=== PATIENT | male | born 1955 | race African-American/Black ===

== ENCOUNTER 2016-06-10 20:00 | Inpatient (IN) | payer BC, OTHER ==
[~2016-06-10] VITALS: Ht 193 cm; Wt 113.4 kg
[2016-06-10 20:36] LABS: Basophils # (auto) 0 uL; Basophils % (auto) 0.7 % (0.0-2.0); Eosinophils # (auto) 0.1 uL; Eosinophils % (auto) 1.3 % (0.0-7.0); Hematocrit 51.2 % (41.0-53.0); Hemoglobin 17.1 g/dL (13.5-17.5); Lymphocytes # (auto) 2.9 uL; Lymphocytes % (auto) 48.9 % (10.0-50.0); Mean Corpuscular Hemoglobin 31.7 pg (28.0-32.0); Mean Corpuscular Hgb Conc. 33.4 g/dL (32.0-36.0); Mean Corpuscular Volume 94.8 fL (80.0-100.0); Mean Platelet Volume 8.4 fL (7.4-10.4); Monocytes # (auto) 0.7 uL; Monocytes % (auto) 12.2 % (0.0-12.0); Neutrophils # (auto) 2.2 uL; Neutrophils % (auto) 36.9 % (37.0-80.0); Platelet Count (auto) 254 10^3/uL (140-450); Red Cell Distribution Width 12.9 % (11.6-16.0); White Blood Cell 5.9 10^3/uL (4.4-10.8)
[2016-06-10 20:55] LABS: Albumin 3.7 g/dL (3.4-5.0); Alkaline Phosphatase 90 U/L (45-117); Anion Gap 9 (5-15); Aspartate Aminotransferase 30 U/L (15-37); BUN/Creatinine Ratio 7.7; Bilirubin, Total 0.6 mg/dL (0.2-1.0); Blood Urea Nitrogen 12 mg/dL (7-18); Calcium 8.8 mg/dL (8.5-10.1); Carbon Dioxide 25 mmol/L (21-32); Chloride 104 mmol/L (98-107); GFR African American 60 mL/min; GFR Non-African American 49 mL/min; Glucose 88 mg/dL (74-106); Magnesium 2.1 mg/dL (1.6-2.6); Potassium 3.9 mmol/L (3.5-5.1); Sodium 138 mmol/L (136-145); Total Protein 8.7 g/dL (6.4-8.2)
[2016-06-10] MEDS ORDERED: METO-158 PO (21:45)
[2016-06-10] MEDS ORDERED: MELO-86 PO (21:46)
[2016-06-10] MEDS ORDERED: ASPirin 81 mg TAB PO ONE (22:00)
[2016-06-10] MEDS ORDERED: PANTOPRAZOLE SODIUM 40 MG/10 ML VIAL IV ONE (22:00)
[2016-06-10 22:21] LABS: INR 1.06 (0.9-1.15); Partial Thromboplastin Time 28.5 sec (22.64-33.71); Prothrombin Time 11.4 sec (9.37-12.3)
[2016-06-10 22:39] LABS: B-Type Natriuretic Peptide 1.71 pg/mL (0-100)
[2016-06-10 22:46] LABS: Temperature: 23.4 C (20.0-25.0)
[2016-06-10] MEDS ORDERED: ONDANSETRON HCL 4 MG/2 ML VIAL IV PRN (23:30)
[2016-06-10] MEDS ORDERED: LABETALOL HCL 5 MG/ML 4ML SYRINGE IV PRN (23:30)
[2016-06-10] MEDS ORDERED: MORPHINE SULF INJ 2 MG/ML SYRINGE 1ML IV PRN (23:30)
[2016-06-10] MEDS ORDERED: NITROGLYCERIN 0.4 MG SL TAB SL PRN (23:30)
[2016-06-10 23:33] LABS: Urine RBC None Seen /hpf (0 - 3)
[2016-06-10 23:51] LABS: Urine Bilirubin Negative (Negative); Urine Blood Negative /uL (Negative); Urine Color Yellow (Yellow); Urine Glucose Normal (Normal); Urine Ketone Negative (Negative); Urine Nitrite Negative (Negative); Urine Urobilinogen Normal (Negative)
[2016-06-11] VITALS (8 sets, daily range): BP systolic 125–148; BP diastolic 84–108
[2016-06-11] MEDS: HYDROcodone-ACET 5/325MG TAB PO PRN (01:05)
[2016-06-11 06:25] LABS: Anion Gap 10 (5-15); BUN/Creatinine Ratio 8.7; Blood Urea Nitrogen 12 mg/dL (7-18); Calcium 8.7 mg/dL (8.5-10.1); Carbon Dioxide 27 mmol/L (21-32); Chloride 104 mmol/L (98-107); Cholesterol 153 mg/dL (< 200); GFR African American 68 mL/min; GFR Non-African American 56 mL/min; Glucose 83 mg/dL (74-106); HDL Cholesterol 33 mg/dL (40-59); LDL Cholesterol 115 mg/dL (< 100); Sodium 141 mmol/L (136-145); Triglycerides 84 mg/dL (< 150)
[2016-06-11] MEDS: ASPirin 81 mg TAB PO SCH (10:12)
[2016-06-11] MEDS: PANTOPRAZOLE 40 MG TAB PO SCH (10:13)
[2016-06-11] MEDS: METOPROLOL TARTRATE 50 MG TAB PO SCH ×2 (10:13→21:50)
[2016-06-11] MEDS ORDERED: ATORVASTATIN 20 MG TAB PO SCH (22:00)
[2016-06-12] MEDS: HYDROcodone-ACET 5/325MG TAB PO PRN ×2 (00:19→06:33)
[2016-06-12 04:54] VITALS: BP 137/91
[2016-06-12 07:19] LABS: Potassium 4.1 mmol/L (3.5-5.1)
[2016-06-12 07:21] LABS: BUN/Creatinine Ratio 10.3
[2016-06-12 09:02] VITALS: BP 139/88
[2016-06-12] MEDS: ASPirin 81 mg TAB PO SCH (09:23)
[2016-06-12] MEDS: PANTOPRAZOLE 40 MG TAB PO SCH (09:23)
[2016-06-12] MEDS: METOPROLOL TARTRATE 50 MG TAB PO SCH (09:24)
[2016-06-12 12:34] VITALS: BP 139/88
[2016-06-12 13:00] VITALS: BP 130/87
== END 2016-06-12 14:00 | disposition home or self-care (01) | DRG 311 ==
LOC: ER 20:02 → TELE-WESTW 20:03
PROVIDERS: ADMIT Internal Medicine; ATTEND Internal Medicine
DX: I20.0 Unstable angina (principal); E66.9 Obesity, unspecified; I12.9 Hypertensive chronic kidney disease with stage 1 through stage 4 chronic kidney disease, or unspecified chronic kidney disease; N18.3 Chronic kidney disease, stage 3 (moderate); Z81.1 Family history of alcohol abuse and dependence; Z82.49 Family history of ischemic heart disease and other diseases of the circulatory system; Z83.3 Family history of diabetes mellitus; Z87.891 Personal history of nicotine dependence; Z91.041 Radiographic dye allergy status; M19.90 Unspecified osteoarthritis, unspecified site
CPT/HCPCS: 36415; 71010; 78452; 80048; 80053; 80061; 81001; 83735; 83880; 84443; 84484; 85025; 85379; 85610; 85730; 93017; 93306; 94761; 96374; C9113

== ENCOUNTER 2019-06-12 01:34 | Inpatient (IN) | payer BC, MEDICAID ==
[~2019-06-12] VITALS: Ht 185.4 cm; Wt 83.3 kg
[~2019-06-12 01:34] MED LIST: MELO1TAB56 PO; METO-158 PO
[2019-06-12 02:44] LABS: Basophils # (auto) 0 10 ^3/uL (0-0.2); Basophils % (auto) 0.3 % (0.0-2.0); Eosinophils # (auto) 0.1 10 ^3/uL (0-0.8); Eosinophils % (auto) 1.1 % (0.0-7.0); Hematocrit 46.2 % (41.0-53.0); Lymphocytes % (auto) 35.5 % (10.0-50.0); Mean Corpuscular Hemoglobin 32.3 pg (28.0-32.0); Mean Corpuscular Hgb Conc. 34.6 g/dL (32.0-36.0); Mean Corpuscular Volume 93.5 fL (80.0-100.0); Monocytes # (auto) 0.7 10 ^3/uL (0-1.3); Monocytes % (auto) 11.9 % (0.0-12.0); Neutrophils # (auto) 2.8 10 ^3/uL (1.6-8.6); Neutrophils % (auto) 51.2 % (37.0-80.0); Nucleated Red Blood Cells % 0.3 %; Platelet Count (auto) 238 10^3/uL (140-450); Red Blood Cells 4.94 10^6/uL (4.5-5.90); Red Cell Distribution Width 12.9 % (11.8-14.3); White Blood Cell 5.5 10^3/uL (4.4-10.8)
[2019-06-12 03:15] LABS: Albumin 3.3 g/dL (3.4-5.0); Anion Gap 4 (5-15); Blood Urea Nitrogen 14 mg/dL (7-18); Calcium 8.4 mg/dL (8.5-10.1); Carbon Dioxide 30 mmol/L (21-32); Chloride 103 mmol/L (98-107); Glucose 138 mg/dL (74-106); INR 1.12 (0.9-1.15); Potassium 3.4 mmol/L (3.5-5.1); Sodium 137 mmol/L (136-145)
[2019-06-12 03:22] LABS: Alanine Aminotransferase 51 U/L (16-61); Alkaline Phosphatase 106 U/L (45-117); Aspartate Aminotransferase 42 U/L (15-37); BUN/Creatinine Ratio 9.7; Bilirubin, Total 0.4 mg/dL (0.2-1.0); GFR African American 64 mL/min; GFR Non-African American 53 mL/min; Total Protein 7.9 g/dL (6.4-8.2)
[2019-06-12] MEDS ORDERED: MORPHINE SULF INJ 2 MG/ML SYRINGE 1ML IV PRN (04:15)
[2019-06-12] MEDS ORDERED: NITROGLYCERIN 0.4 MG SL TAB SL PRN ×2 (04:15)
[2019-06-12] MEDS ORDERED: ACETAMINOPHEN 325 MG TAB PO PRN (04:15)
[2019-06-12] MEDS ORDERED: ONDANSETRON HCL 4 MG/2 ML VIAL IV PRN (04:15)
[2019-06-12] MEDS ORDERED: MORPHINE SULFATE 4 MG/ML SYR/VIAL IV PRN (04:15)
--- NOTE | 2019-06-12 08:20 | NUR ---
Telemetry admit from ER JODY VALENZUELA admitted to Telemetry unit after SBAR received. Patient oriented to BRISEIDA SHAW, RN primary RN, unit, room, bed, and unit policies regarding patient care and visiting hours. Patient now on continuous telemetry monitoring, tele box # 18 and telemetry reading on arrival to unit is SR IN 60'S. Patient weighed by bed scale and encouraged to call if they need something. All questions and concerns addressed, patient verbalized understanding.
[2019-06-12 09:00] VITALS: BP 118/80
[2019-06-12 10:00] VITALS: BP 118/80
[2019-06-12] MEDS ORDERED: LOSARTAN POTASSIUM 25 MG TAB PO SCH (10:00)
[2019-06-12] MEDS ORDERED: CLOPIDOGREL BISULFATE 75 MG TAB PO SCH (10:00)
[2019-06-12] MEDS ORDERED: CARVEDILOL 3.125 MG TAB PO SCH (10:00)
[2019-06-12] MEDS: ASPirin 81 mg TAB PO SCH (10:19)
[2019-06-12] MEDS: DOCUSATE SOD 100 MG CAP PO SCH (10:19)
[2019-06-12] MEDS ORDERED: POTASSIUM CHL 20 Meq TABLET PO ONE (12:00)
[2019-06-12] MEDS ORDERED: PANTOPRAZOLE 40 MG TAB PO ONE (12:00)
[2019-06-12 13:00] VITALS: BP 114/80
[2019-06-12] MEDS: SODIUM CHLORIDE 0.9% 1,000 ML IV SCH (13:42)
[2019-06-12 16:50] VITALS: BP 96/61
[2019-06-12] MEDS ORDERED: CHLO25TA22 PO (17:36)
[2019-06-12] MEDS ORDERED: AMLO5TAB15 PO (17:36)
--- NOTE | 2019-06-12 19:45 | NUR ---
RECEIVED PATIENT FROM DAY SHIFT RN. PATIENT RESTING IN BED. NO S/S OF DISTRESS NOTED. C/O PAIN @ 8/10 ON HIS LEFT KNEE AND BACK, PATIENT REFUSED TO TAKE MEDICATION FOR NOW, INSTRUCTED PATIENT THE SCHEDULE OF PAIN MANAGEMENT, AND ENCOURAGED PATIENT TO ASK FOR PAIN MEDICATION IF HE COULD NOT TOLERATE THE PAIN. PATIENT VERBALIZED UNDERSTANDING. POC INSTRUCTED AND ENCOURAGED PATIENT TO CALL FOR FEDERAL MEDIATOR IF NEEDED. BED IN LOWEST POSITION WITH SIDE RAILS UP X 2. CALL [facility] WITHIN REACH. ALARM ON. CONTINUE TO MONITOR FOR CHANGES Q1H AND PRN.
--- NOTE | 2019-06-12 20:19 | NUR ---
URINE SAMPLE COLLECTED AND SENT. CONTINUE TO MONITOR.
[2019-06-12 20:26] LABS: Urine Bacteria NONE SEEN /hpf (None Seen); Urine Blood Negative /uL (Negative); Urine WBC 1 /hpf (0 - 3)
[2019-06-12] MEDS ORDERED: ATORVASTATIN 20 MG TAB PO SCH (22:00)
[2019-06-12 22:17] VITALS: BP 103/61
--- NOTE | 2019-06-12 22:30 | NUR ---
PATIENT REQUESTED SLEEPING PILL EARLIER, HOSPITALIST CALLED BACK AND ORDER RECEIVED. CONTINUE TO MONITOR.
[2019-06-12] MEDS ORDERED: TEMAZEPAM 15 MG CAP PO ONE (22:45)
--- NOTE | 2019-06-12 23:02 | NUR ---
PATIENT REFUSED TO TAKE SLEEPING PILL NOW AND STATED THAT HE'S OKAY. MEDICATION RETURNED. CONTINUE TO MONITOR.
--- NOTE | 2019-06-13 03:13 | NUR ---
PATIENT SLEEPING. NO S/S OF DISTRESS NOTED. CONTINUE CARE.
[2019-06-13] MEDS: SODIUM CHLORIDE 0.9% 1,000 ML IV SCH (03:14)
[2019-06-13 05:13] VITALS: BP 107/76
[2019-06-13 06:18] LABS: Basophils # (auto) 0 10 ^3/uL (0-0.2); Basophils % (auto) 0.4 % (0.0-2.0); Eosinophils # (auto) 0.1 10 ^3/uL (0-0.8); Eosinophils % (auto) 1.5 % (0.0-7.0); Hematocrit 47.7 % (41.0-53.0); Hemoglobin 16.3 g/dL (13.5-17.5); Lymphocytes # (auto) 2.9 10 ^3/uL (0.4-5.4); Mean Corpuscular Hgb Conc. 34.2 g/dL (32.0-36.0); Mean Corpuscular Volume 93.8 fL (80.0-100.0); Monocytes # (auto) 0.6 10 ^3/uL (0-1.3); Monocytes % (auto) 10.7 % (0.0-12.0); Neutrophils # (auto) 2.3 10 ^3/uL (1.6-8.6); Neutrophils % (auto) 38.4 % (37.0-80.0); Nucleated Red Blood Cells % 0.3 %; Platelet Count (auto) 230 10^3/uL (140-450); Red Blood Cells 5.08 10^6/uL (4.5-5.90); Red Cell Distribution Width 12.6 % (11.8-14.3); White Blood Cell 5.9 10^3/uL (4.4-10.8)
[2019-06-13 06:35] LABS: Potassium 3.3 mmol/L (3.5-5.1)
[2019-06-13 06:43] LABS: BUN/Creatinine Ratio 12.1; Calcium 8.7 mg/dL (8.5-10.1); Magnesium 2.2 mg/dL (1.6-2.6)
[2019-06-13 09:00] VITALS: BP 114/70
[2019-06-13] MEDS ORDERED: POTASSIUM EFFERVESENT TAB 25 MEQ PO ONE (09:45)
[2019-06-13] MEDS ORDERED: PANTOPRAZOLE 40 MG TAB PO SCH (10:00)
[2019-06-13] MEDS: DOCUSATE SOD 100 MG CAP PO SCH (10:04)
[2019-06-13] MEDS: ASPirin 81 mg TAB PO SCH (10:04)
[2019-06-13 11:49] VITALS: BP 114/70
--- NOTE | 2019-06-13 12:30 | NUR ---
Discharge instructions given as ordered. Encourage to follow up with PMD as instructed. All questions and concerns addressed. Patient verbalized understanding. IV removed with catheter intact, pressure dressing applied. Telemetry unit returned to ICU. Patient taken to vehicle via wheelchair with all personal belongings, accompanied by staff. No distress noted at time of departure.
== END 2019-06-13 12:30 | disposition home or self-care (01) | DRG 683 ==
LOC: ER 01:35 → TELE 01:36 → TELE-CENTR 08:15
PROVIDERS: ADMIT Hospitalist; ATTEND Internal Medicine
DX: N17.0 Acute kidney failure with tubular necrosis (principal); E44.1 Mild protein-calorie malnutrition; R65.10 Systemic inflammatory response syndrome (SIRS) of non-infectious origin without acute organ dysfunction; N18.9 Chronic kidney disease, unspecified; I12.9 Hypertensive chronic kidney disease with stage 1 through stage 4 chronic kidney disease, or unspecified chronic kidney disease; E87.6 Hypokalemia; E66.9 Obesity, unspecified; E88.09 Other disorders of plasma-protein metabolism, not elsewhere classified; Z82.49 Family history of ischemic heart disease and other diseases of the circulatory system; Z87.891 Personal history of nicotine dependence; Z83.3 Family history of diabetes mellitus; Z68.24 Body mass index [BMI] 24.0-24.9, adult
CPT/HCPCS: 36415; 70450; 71045; 80048; 80053; 80061; 81001; 82962; 83735; 83880; 84484; 85025; 85610; 85730; 93306; G0378

== ENCOUNTER 2019-11-29 22:22 | Emergency (ER) | payer BC, MEDICAID ==
[~2019-11-29] VITALS: Ht 185.4 cm; Wt 117.9 kg
[~2019-11-29 22:22] MED LIST changes: +AMLO5TAB15 PO; +CHLO25TA22 PO
[2019-11-30] MEDS ORDERED: TETANUS-DIPTH-ACEL PERTUSSIS 0.5ML SYR Tdap IM ONE (00:15)
[2019-11-30] MEDS ORDERED: LIDOCAINE 1% HCL (LOCAL ANESTH.) INJ 20ML MDV IJ ONE (00:15)
[2019-11-30 00:39] VITALS: BP 127/91
== END 2019-11-30 01:21 | disposition home or self-care (01) ==
LOC: ER 22:23
DX: S81.012A Laceration without foreign body, left knee, initial encounter (principal); I10 Essential (primary) hypertension; W22.8XXA Striking against or struck by other objects, initial encounter; Y93.89 Activity, other specified; Y92.89 Other specified places as the place of occurrence of the external cause; Y99.8 Other external cause status
CPT/HCPCS: 12001; 90471; 90715

== ENCOUNTER 2021-11-07 14:06 | Emergency (ER) | payer OTHER ==
[~2021-11-07] VITALS: Ht 185.4 cm; Wt 121.8 kg
[~2021-11-07 14:06] MED LIST changes: +AMLO-489 PO; -AMLO5TAB15 PO; +CHLO25TA2 PO; -CHLO25TA22 PO
[2021-11-07 15:56] VITALS: BP 124/94
== END 2021-11-07 16:24 | disposition home or self-care (01) ==
LOC: ER 14:08
DX: S00.83XA Contusion of other part of head, initial encounter (principal); I10 Essential (primary) hypertension; Z87.891 Personal history of nicotine dependence; Z91.041 Radiographic dye allergy status; W19.XXXA Unspecified fall, initial encounter; Y93.89 Activity, other specified; Y92.89 Other specified places as the place of occurrence of the external cause; Y99.8 Other external cause status
CPT/HCPCS: 70450

== ENCOUNTER 2024-04-22 10:53 | Emergency (ER) | payer OTHER, MEDICARE, MEDICAID ==
[~2024-04-22] VITALS: Ht 185.4 cm; Wt 122.4 kg
[~2024-04-22 10:53] MED LIST changes: -AMLO-489 PO; +AMLO1TAB22 PO; +MELO15TA29 PO; -MELO1TAB56 PO
[2024-04-22 11:35] VITALS: PULSE 83; RESP 18; O2SAT 96
--- NOTE | 2024-04-22 11:37 | ED.PDOC ---
HPI Comments Pawel HPI: Poor Historian. HPI: 68 year old male presents to the ED with chief complaint of hyperglycemia. Patient reports that he has been experiencing a headache with associated dizziness, blurred vision, and frequent urination since Wednesday. Patient relays that he checked his glucose this morning and was noted to be 371. Patient states he has history of hypertension and was taking Labetalol up until the end of last November, only starting his medication again yesterday. Patient was supposed to be on metformin but he stopped it few months ago. Vitals: Temp: 97.8F BP: 198/118 HR: 84 RR: 17 spO2: 95% Past Medical History: Denies Past Surgical History: Denies Social History: Denies cigarette, ETOH, or drug use. Allergies: NKDA REVIEW OF SYSTEMS: CONSTITUTIONAL: Denies acute: fever, diaphoresis, chills, generalized weakness. HEAD: Denies acute: , photophobia Eyes: Denies acute: Double vision, vision loss, eye pain, eye discharge. EARS: Denies acute: tinnitus, hearing loss, ear discharge, ear pain, THROAT: Denies acute: sore throat, swelling, difficulty swallowing , pain with swallowing, change in voice. NECK: Denies acute: neck pain, neck swelling, stiff neck. HEART: Denies acute : chest pain, palpitations, LUNGS: Denies acute: SOB, wheezing, cough, hemoptysis ABDOMEN: Denies acute: abdominal pain, Nausea, Vomiting, diarrhea, melena , hematemesis, hematochezia SKIN: Denies acute: rash, redness, lesions, itchiness. EXTREMITIES: Denies acute: calf pain, numbness, tingling, weakness, denies pain in extremity. Denies acute: Low back pain. Neuro: Denies acute: focal neurological deficit, motor or sensory focal neurological deficit, tremors, seizure like activity, confusion, , change in mental status, loss of bowel or bladder function, cauda equina like symptoms. : Denies acute: dysuria, hematuria, flank pain, increase in urinary frequency. PSYCH: Denies acute: hallucination, suicidal ideation, homicidal ideation. PHYSICAL EXAM: General: no acute distress, awake and alert. Head: normocephalic, atraumatic. Neck: supple, trachea is midline, no swelling. Throat: Normal phonation. Eyes:, no erythema, no purulent discharge, no proptosis, no icterus. Heart: regular rate, regular rhythm, no significant murmur appreciated. Lungs: no apparent respiratory distress, Able to speak in full sentences. No wheezing, no rhonchi, no crackles. No stridors Clear to auscultation bilaterally. Abdomen: non tender to palpation, non distended, soft, no guarding, no rebound, + bowel sounds. Neuro: Awake, Alert, oriented to name, self, situation, follows commands GCS=15. Speech is normal. Skin: no petechia, no purpura, no cyanosis, non-pale, not jaundice. Lower extremities: --no - Pitting edema no deformity, no focal swelling, no calf TTP. Makes eye contact. moves all four extremities. Face: no apparent facial droop. Ambulating in the ED independently. ED COURSE: Chief Complaint: Hyperglycemia Time Seen by MD: 11:34 Primary Care Provider: GREG Reviewed Notes: Medications, Allergies Allergies: Coded Allergies: Iodine (Verified Allergy, Severe, 06/10/16) Home Meds Reported Medications Chlorthalidone (Chlorthalidone) 25 Mg Tab, 25 MG PO DAILY, TAB 06/12/19 Amlodipine Besylate (Amlodipine Besylate) 5 Mg Tab, 10 MG PO DAILY for 30 Days, MG 06/12/19 Meloxicam (Meloxicam) 15 Mg Tab, 15 MG PO, TAB 06/10/16 Metoprolol Tartrate (Metoprolol Tartrate) 50 Mg Tab, 50 MG PO Q12HR for 30 Days, MG 06/10/16 Information Source: Patient Mode of Arrival: Ambulatory Was a procedure done? Was a procedure done?: No CP Differential Dx Differential Diagnosis: N/A Differential Diagnosis: Other (DDX include renal disease, thyroid disease, electrolyte abnormality, increased salt intake, medications non-compliance, undiagnosed HTN, Hypertensive crisis, hypertensive urgency., drug toxicity.) X-Ray, Labs, Meds, VS Vital Signs Date Time Temp Pulse Resp B/P (MAP) Pulse Ox O2 Delivery O2 Flow Rate FiO2 04/22/24 16:49 74 17 138/99 (112) 94 04/22/24 14:00 98.1 16 97 145/91 (109) 97 98.1 04/22/24 12:33 113/73 04/22/24 12:00 83 04/22/24 11:46 147/108 04/22/24 11:35 98.4 83 18 147/108 (121) 96 98.4 04/22/24 11:35 83 18 96 Room Air* 0 21 04/22/24 11:35 84 04/22/24 11:17 97.8 84 17 189/132 (151) 95 97.8 Lab Test 04/22/24 15:10 04/22/24 14:55 04/22/24 12:31 04/22/24 12:00 Range/Units POC Glucose 259 H 70-106 mg/dl Troponin I High Sensitivity 3 L 3 L </=54 ng/L Urine Color Yellow Yellow Urine Clarity Clear Clear Urine pH 6.0 5.0-9.0 Urine Specific [place] 1.016 1.001-1.035 Urine Protein 1+ H Negative Urine Ketones Negative Negative Urine Blood Negative Negative /uL Urine Nitrite Negative Negative Urine Bilirubin Negative Negative Urine Urobilinogen Normal Negative mg/dL Urine Leukocyte Esterase Negative Negative /uL Urine RBC 1 0 - 3 /hpf Urine Microscopic WBC 1 0-3 /HPF Urine Squamous Epithelial Cells None seen <5 /hpf Urine Bacteria None seen None Seen /hpf Urine Hyaline Casts Few 0 - 2 /lpf Urine Mucus Few None Seen Urine Glucose 4+ H Normal mg/dL Test 04/22/24 11:42 04/22/24 11:19 Range/Units POC Glucose 330 H 70-106 mg/dl White Blood Count 6.7 4.4-10.8 10^3/uL Red Blood Count 5.22 4.5-5.90 10^6/uL Hemoglobin 17.2 13.5-17.5 g/dL Hematocrit 49.1 41.0-53.0 % Mean Corpuscular Volume 94.1 80.0-100.0 fL Mean Corpuscular Hemoglobin 33.0 H 28.0-32.0 pg Mean Corpuscular Hemoglobin Concent 35.0 32.0-36.0 g/dL Red Cell Distribution Width 12.4 11.8-14.3 % Platelet Count 212 140-450 10^3/uL Mean Platelet Volume 8.5 6.9-10.8 fL Neutrophils (%) (Auto) 35.7 L 37.0-80.0 % Lymphocytes (%) (Auto) 52.3 H 10.0-50.0 % Monocytes (%) (Auto) 10.4 0.0-12.0 % Eosinophils (%) (Auto) 1.2 0.0-7.0 % Basophils (%) (Auto) 0.4 0.0-2.0 % Neutrophils # (Auto) 2.4 1.6-8.6 10 ^3/uL Lymphocytes # (Auto) 3.5 0.4-5.4 10 ^3/uL Monocytes # (Auto) 0.7 0-1.3 10 ^3/uL Eosinophils # (Auto) 0.1 0-0.8 10 ^3/uL Basophils # (Auto) 0 0-0.2 10 ^3/uL Nucleated Red Blood Cells 0.1 % Sodium Level 136 136-145 mmol/L Potassium Level 4.2 3.5-5.1 mmol/L Chloride Level 99 98-107 mmol/L Carbon Dioxide Level 31 20-31 mmol/L Anion Gap 6 5-15 Blood Urea Nitrogen 6 L 9-23 mg/dL Creatinine 1.19 0.700-1.30 mg/dL Glomerular Filtration Rate Calc 67 >90 mL/min BUN/Creatinine Ratio 5.0 L 10.0-20.0 Serum Glucose 335 H 74-106 mg/dL Lactic Acid Level 1.9 0.4-2.0 mmol/L Calcium Level 10.0 8.7-10.4 mg/dL Total Bilirubin 0.8 0.2-1.0 mg/dL Aspartate Amino Transferase (AST) 30 13-40 U/L Alanine Aminotransferase (ALT) 44 H 7-40 U/L Alkaline Phosphatase 149 H 46-116 U/L Troponin I High Sensitivity 4 </=54 ng/L Total Protein 8.5 H 5.7-8.2 g/dL Albumin 4.6 3.2-4.8 g/dL Lipase 33 12-53 U/L Beta-Hydroxybutyric Acid 0.088 < 0.4 mmol/L Current Medications Medications (Trade) Dose Ordered Sig/Ismael Route Start Time Stop Time Status Last Admin Nitroglycerin (Ntrostat Sublingual) 0.4 mg ONCE ONCE SL 04/22/24 11:30 04/22/24 11:31 DC 04/22/24 11:46 Insulin Human Regular (InsuLIN R) 5 units ONCE ONCE IV 04/22/24 13:30 04/22/24 13:31 DC 04/22/24 13:43 Sodium Chloride 1,000 ml @ 1,000 mls/hr Q1H ONCE IV 04/22/24 13:30 04/22/24 14:29 DC 04/22/24 13:42 [place] [id number] Ph: [phone] DIAGNOSTIC IMAGING Diagnostic Imaging Report : [id number] Signed PATIENT: JODY VALENZUELA ACCT: [id number] UNIT: [id number] : 1955 LOC: ER ROOM / BED: / AGE / SEX: 68 / M ADM STATUS: REG ER SERVICE [id number] ORDERING PHYSICIAN: NIKKY MELGAR DO PROCEDURE(s): CXRP - CHEST PORTABLE REASON: HTN ORDER NUMBER(s): [id number], ACCESSION NUMBER(s): [id number] CHEST RADIOGRAPH Indication: HTN Technique: Single frontal view of the chest was obtained COMPARISON: CHEST PORTABLE on DOS: 06/12/19 FINDINGS: Lines and Tubes: None Lungs: Clear Pleura: No effusion. No pneumothorax. Cardiomediastinal contours: Unremarkable Bones: Unremarkable IMPRESSION: 1. No acute disease. ATED BY: RA OLVERA MD DICTATED DATE/TIME: 04/22/241205 SIGNED BY: RA OLVERA MD SIGNED DATE/TIME: 04/22/241205 CC: Time of 1ST Reevaluation: 12:34 Reevaluation 1ST: Unchanged Time of 2ND Reevaluation: 17:42 Reevaluation 2ND: Resolved Patient Education/Counseling: Diagnosis, Treatment Family Education/Counseling: No Family Present Comments Patient presented with the above HPI.---hypertensive urgency and hyperglycemia---workup was initiated. patient was found with the above mentioned diagnosis. the following medications were ordered: please refer to order lists of meds and tests obtained by myself Dr. Melgar. Patient ED course and VS have been stabilized. Patient has been reassessed in the ED and remained in a stable condition. Pertinent incidental findings were discussed with the patient and/or family. Patient/family voices understanding and is agreeable with plan. Patient has been observed in the ED adequate length of time to insure improvement/stability. Escalation of care considered: Consideration of escalation to observation or admission Patient was DISCHARGED home in a stable condition. All the reports of any imaging studies that were ordered by myself were reviewed by myself. Departure 1 Departure Time of Disposition: 14:53 Impression: Primary Impression: Uncontrolled diabetes mellitus Additional Impressions: Hypertensive urgency Noncompliance with medication regimen Disposition: HOME / SELF CARE / HOMELESS Condition: Stable Additional Instructions: Additional discharge instructions: You MUST follow-up with your primary care/family doctor in 1 to 2 days. If you are unable to see your primary care/family doctor, please return to our emergency room for re-assessment and re-evaluation in 1 to 2 days. Return to the emergency room here in our facility or to the nearest ER [facility] if your symptoms change or worsen. CONSULTATIONS: you MUST Follow-up for consultation as soon as possible with: -cardiology and endocrinology in 1-2 days. Please call for appointment. You MUST call the consultants office yourself to make an appointment. You may need to arrange that through your insurance and/or your primary/family doctor. If you are unable to see the quality assurance consultant in 1 to 2 days, you must return to our emergency room (or any other ER of your choice) for re-assessment and re- evaluation. Adequate fluid hydration. Monitor blood sugar closely. Monitor blood pressure at home at least 3 times a day. Please compliant with all her medications. Discharged With: Self Critical Care Note Critical Care Time?: Yes (35 min-critical care time only) Heart Score Heart Score: Heart Score Response (Comments) Value History Slightly Suspicious 0 EKG Normal 0 Age >65 2 Risk Factors 1 or 2 risk factors 1 Troponin Normal limit 0 Total 3 I personally scribed for NIKKY MELGAR DO ([email or web address]) on 04/22/24 at 11:37. Electronically submitted by Emiliano Kline ([email or web address]). I personally scribed for NIKKY MELGAR DO ([email or web address]) on 04/22/24 at 13:29. Electronically submitted by Emiliano Kline ([email or web address]). NIKKY MELGAR DO Apr 22, 2024 11:37
[2024-04-22] MEDS: NITROGLYCERIN 0.4 MG SL TAB SL ONE (11:46)
[2024-04-22 11:56] LABS: Basophils # (auto) 0 10 ^3/uL (0-0.2); Basophils % (auto) 0.4 % (0.0-2.0); Eosinophils # (auto) 0.1 10 ^3/uL (0-0.8); Eosinophils % (auto) 1.2 % (0.0-7.0); Hematocrit 49.1 % (41.0-53.0); Hemoglobin 17.2 g/dL (13.5-17.5); Lymphocytes # (auto) 3.5 10 ^3/uL (0.4-5.4); Lymphocytes % (auto) 52.3 % (10.0-50.0); Mean Corpuscular Volume 94.1 fL (80.0-100.0); Monocytes # (auto) 0.7 10 ^3/uL (0-1.3); Monocytes % (auto) 10.4 % (0.0-12.0); Neutrophils # (auto) 2.4 10 ^3/uL (1.6-8.6); Neutrophils % (auto) 35.7 % (37.0-80.0); Nucleated Red Blood Cells % 0.1 %; Platelet Count (auto) 212 10^3/uL (140-450); Red Blood Cells 5.22 10^6/uL (4.5-5.90); Red Cell Distribution Width 12.4 % (11.8-14.3); White Blood Cell 6.7 10^3/uL (4.4-10.8)
--- NOTE | 2024-04-22 12:09 | DVH ---
CHEST RADIOGRAPH Indication: HTN Technique: Single frontal view of the chest was obtained COMPARISON: CHEST PORTABLE on DOS: 06/12/19 FINDINGS: Lines and Tubes: None Lungs: Clear Pleura: No effusion. No pneumothorax. Cardiomediastinal contours: Unremarkable Bones: Unremarkable IMPRESSION: 1. No acute disease.
[2024-04-22 12:15] LABS: Albumin 4.6 g/dL (3.2-4.8); Anion Gap 6 (5-15); Aspartate Aminotransferase 30 U/L (13-40); Carbon Dioxide 31 mmol/L (20-31); Chloride 99 mmol/L (98-107); Lipase 33 U/L (12-53); Potassium 4.2 mmol/L (3.5-5.1)
[2024-04-22 12:16] LABS: Alanine Aminotransferase 44 U/L (7-40); Alkaline Phosphatase 149 U/L (46-116); Bilirubin, Total 0.8 mg/dL (0.2-1.0); Blood Urea Nitrogen 6 mg/dL (9-23); Glucose 335 mg/dL (74-106); Sodium 136 mmol/L (136-145); Total Protein 8.5 g/dL (5.7-8.2)
[2024-04-22] MEDS: SODIUM CHLORIDE 0.9% 1,000 ML IV ONE (13:42)
[2024-04-22] MEDS: InsuLIN REG 1unit/0.01ml Soln (100units/ml) IV ONE (13:43)
[2024-04-22 14:00] VITALS: TEMP 98.1
[2024-04-22 16:18] LABS: Urine Bacteria None Seen /hpf (None Seen)
[2024-04-22 16:32] LABS: Urine Blood Negative /uL (Negative); Urine Clarity Clear (Clear); Urine Color Yellow (Yellow); Urine Hyaline Cast FEW /lpf (0 - 2); Urine Mucus FEW (None Seen); Urine Protein, UAD 1+ (Negative); Urine Specific Gravity 1.016 (1.001-1.035); Urine Squamous Epithelial Cell None Seen /hpf (<5); Urine Urobilinogen Normal (Negative); Urine WBC 1 /HPF (0-3)
[2024-04-22 16:49] VITALS: BP 138/99; PULSE 74; RESP 17; O2SAT 94
--- NOTE | 2024-04-24 08:01 | ECG ---
[facility] Test Date: 2024-04-22 Test Time: 11:35:15 Pat Name: JODY VALENZUELA Department: ER Room: Gender: M Triage Register Nurse: [place] : 1955 Requested By: NIKKY MELGAR Order Number: [id number] Reading MD: Romulo Todd Measurements Intervals [place] Rate: 84 P: 36 PA: 161 QRS: 15 QRSD: 86 T: 40 QT: 355 QTc: 420 Interpretive Statements Sinus rhythm Electronically Signed On 04-24-2024 19:09:34 PDT by Romulo Todd Please click the below link to view image of tracing.
== END 2024-04-22 17:04 | disposition home or self-care (01) ==
LOC: ER 10:53
DX: E11.65 Type 2 diabetes mellitus with hyperglycemia (principal); I16.0 Hypertensive urgency; I10 Essential (primary) hypertension; R42 Dizziness and giddiness; Z88.8 Allergy status to other drugs, medicaments and biological substances; Z91.041 Radiographic dye allergy status; Z91.148 Patient's other noncompliance with medication regimen for other reason
CPT/HCPCS: 36415; 71045; 80053; 81001; 82010; 82947; 83605; 83690; 84484; 85025; 93005; 96361; 96374; 99285; J1815; J7030; 82962